=== PATIENT | female | born 1965 | race Two or more races ===

== ENCOUNTER 2023-03-02 12:45 | Emergency (ER) | payer MEDICAID, OTHER ==
[~2023-03-02] VITALS: Ht 162.6 cm; Wt 81.8 kg
[2023-03-02 13:04] VITALS: BP 108/71
[2023-03-02] MEDS ORDERED: METR-344 PO (15:36)
[2023-03-02] MEDS ORDERED: CIPR500T4 PO (15:36)
== END 2023-03-02 16:01 | disposition home or self-care (01) ==
LOC: ER 12:45
DX: K57.32 Diverticulitis of large intestine without perforation or abscess without bleeding (principal); I10 Essential (primary) hypertension
CPT/HCPCS: 74176